=== PATIENT | female | born 1955 | race African-American/Black ===

== ENCOUNTER 2017-09-14 12:24 | Emergency (ER) | payer MEDICAID ==
[~2017-09-14] VITALS: Ht 167.6 cm; Wt 80.0 kg
[~2017-09-14 12:24] MED LIST: ASPI-1159 PO; HYDR12.529 PO; LOSA100T14 PO; METF10002 PO
[2017-09-14] MEDS ORDERED: ACETAMINOPHEN 500MG TABLET PO ONE (14:45)
[2017-09-14] MEDS ORDERED: DEXAMETHASONE 10 MG/ML VIAL IM ONE (14:45)
[2017-09-14] MEDS ORDERED: KETOROLAC 60MG/2ML VIAL IM ONE (14:45)
[2017-09-14 17:04] VITALS: BP 122/78
== END 2017-09-14 17:06 | disposition home or self-care (01) ==
LOC: ER 13:29
DX: J02.8 Acute pharyngitis due to other specified organisms (principal); B97.89 Other viral agents as the cause of diseases classified elsewhere; E11.9 Type 2 diabetes mellitus without complications; I10 Essential (primary) hypertension; Z79.82 Long term (current) use of aspirin; Z79.84 Long term (current) use of oral hypoglycemic drugs
CPT/HCPCS: 87804; 96372; 99284; J1100; J1885

== ENCOUNTER 2021-03-31 16:52 | Inpatient (IN) | payer SELFPAY ==
[~2021-03-31] VITALS: Ht 167.6 cm; Wt 91.8 kg
[~2021-03-31 16:52] MED LIST changes: -ASPI-1159 PO; +ASPI-1497 PO; -LOSA100T14 PO; +LOSA100T32 PO; +METF-416 PO; -METF10002 PO
[2021-03-31] MEDS ORDERED: AMLO5TAB88 PO (17:00)
[2021-03-31] MEDS ORDERED: PIOG45TA64 PO (17:00)
[2021-03-31] MEDS ORDERED: NITROGLYCERIN OINT 1GM/INCH UDPKT TD ONE (18:15)
[2021-03-31] MEDS ORDERED: ASPIRIN 81MG TABLET PO ONE (18:15)
[2021-03-31] MEDS ORDERED: TRAMADOL 50MG TABLET PO ONE (18:15)
[2021-03-31 18:40] LABS: BASOPHILS % 0.8 % (0.0-2.0); HEMATOCRIT. 36.4 % (36.0-48.0); HEMOGLOBIN. 12.5 g/dL (12.0-16.0); LYMPHOCYTES % 37.2 % (20.0-50.0); MEAN CORPUSCULAR HEMOGLOBIN 32.7 pg (28.0-32.0); MEAN CORPUSCULAR VOLUME 94.7 fL (81.0-99.0); MEAN PLATELET VOLUME 8.5 fl (7.4-10.4); MONOCYTES % 6.3 % (2.0-8.0); NEUTROPHILS % 53.7 % (40.0-76.0); PLATELET 279 x1000/uL (130-400); RED BLOOD CELL COUNT 3.84 mill/uL (4.2-5.4); RED CELL DISTRIBUTION WIDTH 13.3 % (11.6-14.6)
[2021-03-31 18:41] LABS: CHLORIDE 104 mEq/L (98-107)
[2021-03-31] MEDS ORDERED: MAGNESIUM/ALUMINUM HYDROXIDE/SIMETHICONE 30ML UDC PO PRN (22:30)
[2021-03-31] MEDS ORDERED: ACETAMINOPHEN 325MG TABLET PO PRN (22:30)
[2021-03-31] MEDS ORDERED: ENOXAPARIN 40MG/0.4ML SYR SUBCUT SCH ×2 (22:30)
[2021-03-31] MEDS ORDERED: GUAIFENESIN 200MG/10ML SUGAR FREE UDC PO PRN (22:30)
[2021-03-31] MEDS ORDERED: CLONIDINE 0.1MG TABLET PO PRN (22:30)
[2021-03-31] MEDS ORDERED: DOCUSATE SODIUM 100MG CAPSULE PO PRN (22:30)
[2021-03-31] MEDS ORDERED: HYDROCODONE/ACETAMINOPHEN 5/325MG TABLET PO PRN (22:30)
[2021-03-31] MEDS ORDERED: ONDANSETRON HCL 4MG/2ML INJ IV PRN (22:30)
[2021-03-31] MEDS ORDERED: HYDROMORPHONE HCL/PF 2MG/ML CPJ IV PRN (23:00)
[2021-04-01] VITALS: BP 115/62
[2021-04-01 01:12] VITALS: BP 115/62
[2021-04-01] MEDS ORDERED: *PATIENT'S OWN MEDICATION STORAGE XX SCH (01:15)
[2021-04-01] MEDS ORDERED: DEXTROSE 50% WATER 50ML SYRINGE IV PRN (02:45)
[2021-04-01 04:00] VITALS: BP 122/70
[2021-04-01 06:19] LABS: BASOPHILS % 0.5 % (0.0-2.0); EOSINOPHILS % 2.5 % (0.0-5.0); HEMATOCRIT. 35.8 % (36.0-48.0); HEMOGLOBIN. 12.1 g/dL (12.0-16.0); LYMPHOCYTES % 43.1 % (20.0-50.0); MEAN CORPUSCULAR HEMOGLOBIN 32.4 pg (28.0-32.0); MEAN CORPUSCULAR VOLUME 96.1 fL (81.0-99.0); MEAN PLATELET VOLUME 8.7 fl (7.4-10.4); NEUTROPHILS % 47.9 % (40.0-76.0); PLATELET 258 x1000/uL (130-400); RED BLOOD CELL COUNT 3.72 mill/uL (4.2-5.4); RED CELL DISTRIBUTION WIDTH 13.8 % (11.6-14.6)
[2021-04-01 06:31] LABS: CHLORIDE 106 mEq/L (98-107)
[2021-04-01] MEDS: BLOOD SUGAR DIAGNOSTIC STRIP TEST SCH ×2 (06:40→12:16)
[2021-04-01 06:58] LABS: LDL CHOLESTEROL 52 mg/dL (5-100)
[2021-04-01 06:59] LABS: HDL CHOLESTEROL 86 mg/dL (40-59)
[2021-04-01] MEDS: INSULIN LISPRO 100 UNITS/ML SUBCUT SCH ×2 (07:10→12:10)
[2021-04-01 08:00] VITALS: BP 130/80
[2021-04-01] MEDS ORDERED: AMLODIPINE 10MG TABLET PO SCH (09:00)
[2021-04-01] MEDS ORDERED: ASPIRIN 81MG EC TABLET PO SCH (09:00)
[2021-04-01] MEDS ORDERED: ENOXAPARIN 30MG/0.3ML SYR SUBCUT SCH (09:00)
[2021-04-01 12:00] VITALS: BP 121/71
[2021-04-01 14:35] VITALS: BP 121/71
== END 2021-04-01 15:55 | disposition home or self-care (01) | DRG 203 ==
LOC: ER 16:52 → EDBEDREQ 17:17 → 7EST 18:44 → EDBEDREQ 18:53 → EDBEDREQTM 18:53 → ENRESERV 22:52 → CANBEDREQ 04-01 03:10
PROVIDERS: ADMIT Hospitalist; ATTEND Hospitalist
DX: R07.89 Other chest pain (principal); E11.9 Type 2 diabetes mellitus without complications; F17.200 Nicotine dependence, unspecified, uncomplicated; Z20.822 Contact with and (suspected) exposure to COVID-19; I10 Essential (primary) hypertension; Z83.3 Family history of diabetes mellitus; Z90.710 Acquired absence of both cervix and uterus
CPT/HCPCS: 36415; 71045; 80053; 80061; 82962; 83036; 83880; 84484; 85025; 87426; 93005; 93306; 93970; 99285; J1650

== ENCOUNTER 2023-07-24 04:38 | Emergency (ER) | payer MEDICAID ==
[~2023-07-24] VITALS: Ht 167.6 cm; Wt 78.9 kg
[~2023-07-24 04:38] MED LIST changes: +AMLO5TAB88 PO; -LOSA100T32 PO; +LOSA100T33 PO; +PIOG45TA64 PO
[2023-07-24 06:10] VITALS: BP 134/87; PULSE 77; RESP 17; O2SAT 98
[2023-07-24 06:48] LABS: GLUCOSE URINE 3+ (NEGATIVE); KETONES URINE TRACE (NEGATIVE)
[2023-07-24 06:50] LABS: HEMATOCRIT. 44.7 % (36.0-48.0); HEMOGLOBIN. 14.4 g/dL (12.0-16.0); MEAN CORPUSCULAR HEMOGLOBIN 31.3 pg (28.0-32.0); MEAN CORPUSCULAR HGB CONC 32.2 g/dL (31.0-37.0); MEAN CORPUSCULAR VOLUME 97.4 fL (81.0-99.0); MEAN PLATELET VOLUME 8.5 fl (7.4-10.4); PLATELET 320 x1000/uL (130-400); RED BLOOD CELL COUNT 4.59 mill/uL (4.2-5.4); WHITE BLOOD COUNT 6.7 x1000/uL (4.5-11.0)
[2023-07-24 06:58] LABS: DIFFERENTIAL COMMENT 1
[2023-07-24 07:06] LABS: ALANINE AMINOTRANSFERASE 17 IU/L (10-49); ALBUMIN 4.5 g/dL (3.2-4.8); ASPARTATE AMINOTRANSFERASE 17 IU/L (<34); BILIRUBIN TOTAL 0.8 mg/dL (0.1-1.0); CALCIUM 9.4 mg/dL (8.7-10.4); CARBON DIOXIDE 25 mEq/L (21-32); CHLORIDE 101 mEq/L (98-107); CREATININE 0.9 mg/dL (0.6-1.0); GLUCOSE 236 mg/dL (70-105); POTASSIUM 3.4 mEq/L (3.5-5.1); PROTEIN TOTAL 7.4 g/dL (6.0-8.3); SODIUM 140 mEq/L (136-145); TROPONIN I HIGH SENSITIVITY 17 ng/L (3.0-34); UREA NITROGEN BLOOD 19 mg/dL (9-23)
[2023-07-24 07:06] LABS: CLARITY URINE CLEAR (CLEAR); COLOR URINE YELLOW (YELLOW); SPECIFIC GRAVITY URINE 1.036 (1.005-1.030)
[2023-07-24 07:07] LABS: LEUKOCYTE ESTERASE URINE NEGATIVE (NEGATIVE); NITRITE URINE NEGATIVE (NEGATIVE); OCCULT BLOOD URINE NEGATIVE (NEGATIVE); PROTEIN URINE TRACE (NEGATIVE); UROBILINOGEN URINE 1 E.U./dL (0.2-1.0); WBC URINE NONE SEEN /hpf (0-2)
[2023-07-24 07:08] LABS: BACTERIA URINE TRACE; RBC URINE NONE SEEN /hpf (0-2); SQUAMOUS EPITHELIAL CELL URINE 1+ /lpf (RARE/1+)
[2023-07-24 09:23] LABS: PLATELET ESTIMATE NORMAL
[2023-07-24] MEDS ORDERED: ACETAMINOPHEN 325MG TABLET PO STA (10:33)
[2023-07-24] MEDS ORDERED: ONDANSETRON HCL 4MG/2ML INJ IV ONE (10:45)
[2023-07-24] MEDS ORDERED: FAMOTIDINE 20MG/2ML VIAL IV ONE (10:45)
[2023-07-24] MEDS ORDERED: SODIUM CHLORIDE 0.9% 1,000 ML IV ONE (10:45)
[2023-07-24 10:53] VITALS: TEMP 97.8
[2023-07-24] MEDS ORDERED: ACET-2708 PO (12:17)
[2023-07-24] MEDS ORDERED: ONDA4TAB50 PO (12:17)
== END 2023-07-24 12:36 | disposition home or self-care (01) ==
LOC: ER 04:38
DX: A05.9 Bacterial foodborne intoxication, unspecified (principal); K29.00 Acute gastritis without bleeding; E11.9 Type 2 diabetes mellitus without complications; I10 Essential (primary) hypertension; Z90.710 Acquired absence of both cervix and uterus; Z79.899 Other long term (current) drug therapy
CPT/HCPCS: 80053; 81003; 83690; 85025; 84484; 36415; 93005; 96374; 96375; 99284; J3490; J2405; J7030; Z7610 ×2

== ENCOUNTER 2025-06-26 17:04 | Emergency (ER) | payer SELFPAY ==
[~2025-06-26] VITALS: Ht 167.6 cm; Wt 83.0 kg
[~2025-06-26 17:04] MED LIST changes: +ACET-2708 PO; +ONDA4TAB50 PO
[2025-06-26 17:20] VITALS: TEMP 36.7; O2SAT 100
[2025-06-26 21:58] VITALS: TEMP 98
[2025-06-26] MEDS: DOCUSATE SODIUM 100MG CAPSULE PO ONE (21:58)
[2025-06-26] MEDS: ACETAMINOPHEN 500MG TABLET PO ONE (21:58)
[2025-06-26] MEDS: POLYETHYLENE GLYCOL 3350 (17GM) 1 DOSE PACK PO ONE (21:58)
[2025-06-27 00:02] LABS: BASOPHILS % 0.6 % (0.0-2.0); EOSINOPHILS % 0.9 % (0.0-5.0); HEMATOCRIT. 41.2 % (36.0-48.0); HEMOGLOBIN. 13.6 g/dL (12.0-16.0); LYMPHOCYTES % 38.9 % (20.0-50.0); MEAN PLATELET VOLUME 7.9 fl (7.4-10.4); MONOCYTES % 5.3 % (2.0-8.0); NEUTROPHILS % 54.3 % (40.0-76.0); PLATELET 300 x1000/uL (130-400); RED BLOOD CELL COUNT 4.36 mill/uL (4.2-5.4); RED CELL DISTRIBUTION WIDTH 13.9 % (11.6-14.6)
[2025-06-27 00:21] LABS: CREATININE 1.1 mg/dL (0.6-1.0); UREA NITROGEN BLOOD 10 mg/dL (9-23)
[2025-06-27 00:22] LABS: PROTEIN TOTAL 7.2 g/dL (6.0-8.3)
[2025-06-27 00:23] LABS: ASPARTATE AMINOTRANSFERASE 14 IU/L (<34); BILIRUBIN DIRECT 0.2 mg/dL (<=3.0); BILIRUBIN TOTAL 0.9 mg/dL (0.1-1.0)
[2025-06-27] MEDS ORDERED: DOCU-138 MT (01:22)
[2025-06-27] MEDS ORDERED: NA P133E RC (01:22)
[2025-06-27] MEDS ORDERED: POLY17PO3 MT (01:22)
[2025-06-27] MEDS: NA PHOS,M-B/NA PHOS,DI-BA ENEMA 118ML PR ONE (02:40)
[2025-06-27 03:15] VITALS: BP 157/76; PULSE 55; RESP 14; O2SAT 98
== END 2025-06-27 03:15 | disposition home or self-care (01) ==
LOC: ER 17:51
DX: K59.09 Other constipation (principal); M79.672 Pain in left foot; I10 Essential (primary) hypertension; E11.9 Type 2 diabetes mellitus without complications; Z79.82 Long term (current) use of aspirin; Z90.49 Acquired absence of other specified parts of digestive tract; Z79.899 Other long term (current) drug therapy; Z90.710 Acquired absence of both cervix and uterus
CPT/HCPCS: 80076; 80048; 83690; 85025; 36415; 74176; 99284; Z7610